=== PATIENT | female | born 1950 | race African-American/Black ===

== ENCOUNTER 2022-01-30 08:25 | Emergency (ER) | payer MEDICARE ==
[~2022-01-30] VITALS: Ht 180.3 cm; Wt 81.8 kg
[2022-01-30 08:48] VITALS: BP 163/111
== END 2022-01-30 11:29 | disposition home or self-care (01) ==
LOC: EMS 08:33
DX: S92.352A Displaced fracture of fifth metatarsal bone, left foot, initial encounter for closed fracture (principal); W10.9XXA Fall (on) (from) unspecified stairs and steps, initial encounter; Y93.89 Activity, other specified; Y92.89 Other specified places as the place of occurrence of the external cause; Y99.8 Other external cause status
CPT/HCPCS: 29515; 99283